=== PATIENT | male | born 1940 | race Caucasian/White ===

== ENCOUNTER 2017-12-08 11:08 | Emergency (ER) | payer MEDICARE ==
[~2017-12-08] VITALS: Ht 177.8 cm; Wt 127.3 kg
[2017-12-08 11:12] VITALS: TEMP 98.4
[2017-12-08] MEDS ORDERED: NORVASC 5MG5 MG/TAB PO (11:46)
[2017-12-08] MEDS ORDERED: NORCO 325 MG-101 TAB PO (11:46)
[2017-12-08] MEDS ORDERED: FENTANYL 75MCG TD (11:46)
[2017-12-08] MEDS ORDERED: PRINIVIL10 MG PO (11:47)
[2017-12-08] MEDS ORDERED: LIPITOR20 MG PO (11:47)
[2017-12-08] MEDS ORDERED: ARICEPT10 MG PO (11:47)
[2017-12-08] MEDS ORDERED: DITROPAN 5MG TAB5 MG PO (11:47)
[2017-12-08] MEDS ORDERED: LASIX 40MG TABL40 MG PO (11:48)
[2017-12-08] MEDS ORDERED: NEURONTIN300 MG/CAP PO (11:48)
[2017-12-08] MEDS ORDERED: TOPROL XL100 MG PO (11:49)
[2017-12-08 13:19] VITALS: BP 168/81; PULSE 68
== END 2017-12-08 13:19 | disposition home or self-care (01) ==
LOC: COL.ER 11:08
DX: G89.29 Other chronic pain (principal); M54.5 Low back pain; E11.9 Type 2 diabetes mellitus without complications; I10 Essential (primary) hypertension